=== PATIENT | male | born 1940 | race Caucasian/White ===

== ENCOUNTER 2024-05-13 11:25 | Day surgery (SDC) | payer MEDICARE, OTHER, SELFPAY ==
[2024-05-13] VITALS (18 sets, daily range): BP systolic 119–167; BP diastolic 71–107; BMI 27.6
--- NOTE | 2024-05-13 11:05 | W.PN.CARDCBS ---
Today's Communication / Plan
-
PCI LAD today
Impression / Plan
-
This is a summary, see scanned consultation
PCP: Vasyl Serna MD
CDY: Dick Reinoso MD
HPI: 83-year-old white male with history of SSS post PPM, atrial fibrillation on rivaroxaban, hypertension, hyperlipidemia and COPD presented to [facility] ER on 05/07 with dizziness, n/v.. Patient was sitting having a cigarette when he became lightheaded
with 3 episodes of vomiting. He was unable to walk back to his apartment in his assisted living facility and EMS was called. He underwent CT of the head which revealed chronic bilateral lacunar infarctions, right thalamus CVA and left thalamus
CVA, MRI with no acute findings. GI was consulted for n/v and CT identified pancreatic lesion with subsequent MRI lobulated multiloculated cystic lesion of the uncinate pancreas without postcontrast enhancement, they also found 5.4cm AAA. He will
need endoscopic u/s as outpt for further eval of pancreatic cyst. He was evaluated by cardiology and underwent Lexiscan showing intermediate risk myocardial perfusion study. He had cardiac catheterization on 05/12 with severely calcified mid segment
of the LAD. He is transferred today for high risk PCI of LAD. He denies ever having any chest pain.
IMP:
Syncope
CAD by cath 05/12 with severely calcified mid LAD stenosis
SSS PPM
Afib on chronic Xarelto
Hypertension
COPD
AAA 05/07/24: Bilobed fusiform aneurysmal dilatation of the infrarenal abdominal aorta measuring up to 5.4 cm.
evidence of infarct on head CT 04/06/24
Patent cerebral blood vessels
possible pancreatic neoplasm
PVD with occlusion of Left SFA
CAD with evidence of 2 vessel ischemia on stress testing 05/10/24
Plan:
PCI LAD today
DAPT ASA/Plavix, 300mg load 05/12, will give 75mg now
Cardiac rehab c/s
MRI re-evaluation of pancreas in 6 months
Return to [facility] after PCI for continued medical therapy
DATA:
05/12/24 [facility]:
1: Severe, calcified, high-grade LAD stenosis, to be treated at a hospital with CT surgery backup.
2: Saccular, infrarenal AAA noted.
05/08/24 ECHO:
1. Estimated left ventricular ejection fraction is normal with an ejection fraction of 60.2 % by Greene's method.
2. Mild concentric left ventricular hypertrophy.
3. Mild mitral annular calcification with trace mitral regurgitation
4. Aortic valve is tricuspid and sclerotic. No aortic regurgitaion present.
5. Right ventricular cavity size is normal with normal systolic function. (TAPSE 2.3 cm).
6. Mild tricuspid regurgitation is seen. Right atrial pressure of (3 mmHg), the estimated right ventricular systolic pressure is normal at (27.9 mmHg).
7. Study done in Normal sinus rhythm.
Progress Note - C Unix Developer
Subjective
Date of Service: May 13, 2024
denies cp, sob
WBC 8.8 10^3/uL (4.5-11.0) 05/12/24 03:38
RBC 4.41 10^6/uL (4.20-5.40) 05/12/24 03:38
Hgb 13.5 gm/dL (13.5-16.5) 05/12/24 03:38
Hct 41.4 % (40.0-48.0) 05/12/24 03:38
MCV 94 fl (82-98) 05/12/24 03:38
RDW 14.4 % (11.0-15.0) 05/12/24 03:38
Plt Count 202 10^3/uL (150-400) 05/12/24 03:38
Neut % (Auto) 57 % (40-78) 05/12/24 03:38
Lymph % (Auto) 24 % (21-49) 05/12/24 03:38
[place] % (Auto) 11 % (0-10) H 05/12/24 03:38
Eos % (Auto) 6 % (0-4) H 05/12/24 03:38
Baso % (Auto) 1 % (0-1) 05/12/24 03:38
Neut # (Auto) 5.0 10^3/uL (2.2-8.0) 05/12/24 03:38
Lymph # (Auto) 2.1 10^3/uL (1.0-4.0) 05/12/24 03:38
[place] # (Auto) 1.0 10^3/uL (0.0-1.0) 05/12/24 03:38
Eos # (Auto) 0.6 10^3/uL (0.0-0.4) H 05/12/24 03:38
Baso # (Auto) 0.1 10^3/uL (0.0-0.1) 05/12/24 03:38
Neutrophils % (Manual) 68 % (40-78) 05/07/24 14:26
Band Neuts % (Manual) 5 % (0-12) 05/07/24 14:26
Lymphocytes % (Manual) 12 % (27-40) L 05/07/24 14:26
Monocytes % (Manual) 10 % (0-10) 05/07/24 14:26
Eosinophils % (Manual) 5 % (0-4) H 05/07/24 14:26
Basophils % (Manual) 0 % (0-1) 05/07/24 14:26
WBC Morphology Comment Norm (NORM) 05/07/24 14:26
RBC Morph Comment Norm (NORM) 05/07/24 14:26
Sodium 142 mmol/L (136-145) 05/12/24 03:38
Potassium 4.0 mmol/L (3.5-5.1) 05/12/24 03:38
Chloride 108 mmol/L (98-107) H 05/12/24 03:38
Carbon Dioxide 24.6 mmol/L (22.0-29.0) 05/12/24 03:38
Anion Gap 9 (7-16) 05/12/24 03:38
BUN 21 mg/dL (8-23) 05/12/24 03:38
Creatinine 1.01 mg/dL (0.70-1.20) 05/12/24 03:38
GFR Calculation 75 (Over 90) L 05/12/24 03:38
BUN/Creatinine Ratio 20.9 (7.0-25.0) 05/12/24 03:38
POC Glucometer 109 mg/dL (70 - 110) 05/08/24 07:08
Fasting Glucose 104 mg/dL (70-110) 05/12/24 03:38
Hemoglobin A1c 6.1 % (4.0-5.9) H 05/07/24 14:26
Calcium 8.6 mg/dL (8.8-10.2) L 05/12/24 03:38
Total Bilirubin 0.4 mg/dL (0.1-1.2) 05/12/24 03:38
AST 20 U/L (0-40) 05/12/24 03:38
ALT 13 U/L (0-41) 05/12/24 03:38
Alkaline Phosphatase 68 U/L (35-160) 05/12/24 03:38
Troponin T 5th Gen ng/L 13 ng/L (0-22) 05/10/24 04:31
Total Protein 6.4 g/dL (6.5-8.3) L 05/12/24 03:38
Albumin 3.6 g/dL (3.5-5.2) 05/12/24 03:38
Globulin 2.7 g/dL (2.3-3.5) 05/12/24 03:38
Albumin/Globulin Ratio 1.3 (1.1-1.7) 05/12/24 03:38
Triglycerides 123 mg/dL (60-150) 05/08/24 06:49
Cholesterol 130 mg/dL (150-200) L 05/08/24 06:49
LDL Cholesterol 73 mg/dL (<70) H 05/08/24 06:49
HDL Cholesterol 36 mg/dL (40-60) L 05/08/24 06:49
Cholesterol/HDL Ratio 3.61 (2.00-5.00) 05/08/24 06:49
Lipase 19 U/L (13-60) 05/07/24 14:26
Procalcitonin 0.02 ng/mL (0.00-0.15) 05/07/24 14:26
TSH 3rd Generation 1.460 mcIU/mL (0.270-4.20) 05/07/24 14:26
Urine Color Yellow (YELLOW) 05/07/24 15:50
Urine Clarity Clear (CLEAR) 05/07/24 15:50
Urine pH 6.5 (5.0-7.0) 05/07/24 15:50
Ur Specific [place] 1.020 (1.006-1.029) 05/07/24 15:50
Urine Protein Negative (NEG-TRACE) 05/07/24 15:50
Urine Glucose (UA) Negative (NEG) 05/07/24 15:50
Urine Ketones Negative (NEG) 05/07/24 15:50
Urine Blood Negative (NEG) 05/07/24 15:50
Urine Nitrate Negative (NEG) 05/07/24 15:50
Urine Bilirubin Negative (NEG) 05/07/24 15:50
Urine Urobilinogen Normal (0.2-1.0) 05/07/24 15:50
Ur Leukocyte Esterase Negative (NEG) 05/07/24 15:50
Urine RBC 1-5 /hpf (1-5) 05/07/24 15:50
Urine Microscopic WBC 1-5 /hpf (0-5) 05/07/24 15:50
Ur Epithelial Cells 1-5 /hpf (0) 05/07/24 15:50
Physical Exam
Physical Exam
NAD, AOx3 [place]
S1, S2, RRR
CTAB, no wheeze, diminished t/o
SNTND bsx4
[2024-05-13] MEDS: NSS 269 ML IV (11:30)
[2024-05-13] MEDS: PLAVIX 75 MG PO (11:58)
[2024-05-13 13:09] LABS: ACT-LR - POC 237 Seconds (116-155)
[2024-05-13 13:54] LABS: ACT-LR - POC 292 Seconds (116-155)
[2024-05-13 14:25] LABS: ACT-LR - POC 216 Seconds (116-155)
--- NOTE | 2024-05-13 15:02 | PTCARENOTE ---
received pt from cardiovascular lab director. Right radial site CDI. Pt educated on expected OOB time and right wrist restrictions. AOx3, no complaints of pain or discomfort. Call espinal within reach.
--- NOTE | 2024-05-13 15:07 | ITS.CL.ANGIO ---
Hand Coper - Angioplasty
Angioplasty
Procedure Report:
LEFT HEART CATHETERIZATION
Date of Procedure: [05/13/2024]
Procedures performed:
1: Coronary angiography
2: PCI with JESUS to LAD
3: Intravascular coronary lithotripsy.
Primary Care Physician: Unknown
Primary Fingernail Former: Dick Reinoso
INDICATION: Unstable angina
ACCESS: The patient was prepped and draped in usual sterile fashion. A 6 [place] sheath was placed in the right right radial artery using the Seldinger over the wire technique. Total of 10,000 units of heparin was administered for anticoagulation.
Percutaneous Coronary Intervention (PCI): This was a planned coronary intervention to the subtotally occluded LAD. EBU 3.5 cm guiding catheter was used to cannulate left main coronary artery. A 6 [place] Guideliner catheter was used for
extra-support.
The lesion was crossed with a run-through wire. Initially, a 1.25 x 12 mm balloon was used to cross the proximal and distal LAD lesions. Several inflations were performed, with the highest inflation to 14 ki. We then switched to a 2.0 x 20 mm
compliant balloon. Several inflations were performed the mid LAD, noting that there was complete expansion of the 2.0 x 20 compliant balloon. We then scaled up to 2.5 x 15 mm noncompliant balloon. Of note, longer 2.5 noncompliant balloons were
not available in the department. Several inflations of 2.5 x 15 mm NC balloons were performed, and there appeared to be full expansion of the mid LAD lesion. We then deployed a 3.0 x 38 mm Oneal drug-eluting stent to the mid LAD. We went up to 14
ki and held for 30 seconds. Unfortunately, there is a focal, 5 mm napkin ring lesion that remained underexpanded. Of note, this was not immediately apparent when the noncompliant balloons were going up prior to stent deployment.
I then took a 3.0 x 12 mm noncompliant balloon and attempted to high-pressure inflation of the nondilated area. I went to size 24 ki, however, the lesion failed to yield. We then decided to proceed with intravascular coronary lithotripsy. A 3.0
x 12 shockwave lithotripsy balloon was then delivered to the lesion with the assistance of the guide liner. Total of 40 pulses were delivered. After delivering of the last 10 pulses, the lesion appeared to be fully expanded. We then took a 3.25 x
20 mm noncompliant balloon and postdilated the entire length of the 38 mm stent. There was complete expansion of the noncompliant balloon. Follow-up angiography revealed a possible irregularity proximal to the stent. No apparent focal dissection
was seen, so we decided to cover it with a short, 3.5 x 12 mm Oneal drug-eluting stent. The stent was then successfully deployed and postdilated with 3.5 x 14 mm noncompliant balloon to 12 ki. Post balloon inflation, there is no dissection or
perforation with SONNY-3 flow in the LAD. At this point, the patient was considered to be revascularized and the procedure was concluded.
FINAL RESULT: Successful intravascular coronary lithotripsy and PCI with JESUS x 2 to the left anterior descending coronary artery.
Fluoroscopy Time (min): 26.3 minutes
Radiation Dose (mGy): 2071.90 mGy
DAP (Gy.cm2): 81.1428
Closure device: None. A TR band was applied for hemostasis at the right wrist.
Complications: None.
ASSESSMENT:
1: Successful PCI with JESUS x 2 followed by intravascular lithotripsy of left anterior descending coronary artery.
CONCLUSIONS and RECOMMENDATIONS:
1: Due to the complexity of the procedure, will observe overnight and [facility] with a plan to transfer back to [facility] at 10 AM the morning of 05/14/2024.
2: Continue aspirin 81 mg, Plavix 75 mg daily. The patient has a history of paroxysmal atrial fibrillation and has been maintained on Xarelto. Patient will continue aspirin 81 mg daily Plavix 75 mg daily and Xarelto 20 mg daily for 1 week, and
then will continue Plavix 75 mg daily and Xarelto 20 mg daily for at least 6 months.
I was present with the patient for the duration of the moderate sedation and supervised staff who monitored the patient for the entire procedure. Details of sedation are entered by the nurse administering the sedation and details of the patient's
monitoring status are entered by a sign monitor role staff member into the [facility] laboratory electronic record system. Please see the nursing flow sheets for documentation of the name of the independent trained observer, and intra-service start and
end times.
I administered moderate sedation throughout this [74] minute procedure. An independent trained observer administered medications at my direction, and monitored, along with the monitor role staff member, the patient's level of consciousness and
physiological status throughout
[2024-05-13] MEDS: DUONEB 3 ML INH ×2 (15:36→19:24)
--- NOTE | 2024-05-13 16:36 | CM ---
Chart reviewed. Patient was a transfer from [facility] for LAD stent. Patient is independent of ADLS, lives [place] at [facility], 2nd floor, total of 8 [place], 0 DME. Plan is to return back to [facility] 05/14/2024. Bed will need to be confirmed at [facility], as
well as transportation back. CM to follow
[2024-05-13] MEDS: LIPITOR 40 MG PO (18:28)
[2024-05-13] MEDS: ADVAIR HFA 115/21 MCG INHALER 2 PUFF INH (19:24)
[2024-05-13] MEDS: LOVENOX 40 MG SC (22:31)
--- NOTE | 2024-05-14 00:24 | PTCARENOTE ---
TR band removed at approx 20:20 w/out difficulty. Dry dressing applied. Site ecchymotic and soft upon palpation. No hematoma noted at this time. Pt educated on activity restrictions. Pt AAOx3 and [place] bilaterally w/ hearing aids. Tele rhythm shows SR
and occasional Apaced. Pt denies any pain or SOB. Aware of POC, call espinal within reach.
[2024-05-14 03:12] VITALS: BP 139/98
[2024-05-14 03:17] VITALS: BMI 27.4
[2024-05-14 03:46] LABS: Hematocrit 38.3 % (39.0-52.0); Hemoglobin 13.5 g/dL (13.0-18.0); Mean Corp Hgb Conc. 35.2 g/dL (33.0-37.0); Mean Corpuscular Hgb 31.1 pg (27.0-31.0); Mean Corpuscular Volume 88.2 fL (80.0-94.0); Mean Platelet Volume 9.4 fL (7.4-10.4); Platelet Count 201 10^3/uL (130-400); Red Blood Cell Count 4.34 10^6/uL (4.70-6.10); Red Cell Dist. Width 14.3 % (11.5-14.5); White Blood Cell Count 11.1 10^3/uL (4.8-10.8)
[2024-05-14 04:17] LABS: Blood Urea Nitrogen 18 mg/dl (9-20); Calcium 9.1 mg/dl (8.4-10.2); Carbon Dioxide 23 mmol/L (22-30); Chloride 107 mmol/L (98-107); Estimated Creatinine Clearance 69 ml/min; Glucose 97 mg/dl (70-99); Potassium 3.8 mmol/L (3.5-5.1); Sodium 140 mmol/L (135-145); eGFR > 60.00
[2024-05-14 07:42] LABS: ACT-LR - POC > 397 Seconds (116-155)
[2024-05-14 07:42] LABS: ACT-LR - POC > 397 Seconds (116-155)
[2024-05-14 07:55] VITALS: BP 165/100
[2024-05-14] MEDS: ADVAIR HFA 115/21 MCG INHALER 2 PUFF INH (07:55)
[2024-05-14] MEDS: DUONEB 3 ML INH ×3 (07:55→15:09)
[2024-05-14 07:58] VITALS: BP 128/92
[2024-05-14] MEDS: LOW STRENGTH ASPIRIN 81 MG PO (08:20)
[2024-05-14] MEDS: TOPROL XL 25 MG PO (08:20)
[2024-05-14] MEDS: PACERONE 100 MG PO (08:21)
[2024-05-14] MEDS: PLAVIX 75 MG PO (08:21)
--- NOTE | 2024-05-14 09:45 | W.PN.CARDCBS ---
Addendum entered and electronically signed by Jerald Dwyer DO 05/14/24 13:45:
Attestation: I have seen and examined the patient. I can confirm Ms. Silva's findings and I agree with her assessment and plan as documented.
83-year-old gentleman transferred for high risk PCI with intracoronary lithotripsy.
The patient underwent a successful procedure yesterday.
He offers no subjective complaints morning.
Exam is benign.
Labs are stable.
The patient is hemodynamically stable and appropriate for transfer back to [facility].
Maintain dual antiplatelet therapy for the foreseeable future.
Further medication titration per primary cardiology.
Original Note:
Today's Communication / Plan
-
post lithotripsy and PCI calcified LAD
plan to transfer back to [facility] this am when bed available
will be on triple therapy for 1 week (ASA 81, Plavix 75, XArelto 15mg) then stop Aspirin
Impression / Plan
-
This is a summary, see scanned consultation
PCP: Vasyl Serna MD
CDY: Dick Reinoso MD
HPI: 83-year-old white male with history of SSS post PPM, atrial fibrillation on rivaroxaban, hypertension, hyperlipidemia and COPD presented to [facility] ER on 05/07 with dizziness, n/v.. Patient was sitting having a cigarette when he became lightheaded
with 3 episodes of vomiting. He was unable to walk back to his apartment in his assisted living facility and EMS was called. He underwent CT of the head which revealed chronic bilateral lacunar infarctions, right thalamus CVA and left thalamus
CVA, MRI with no acute findings. GI was consulted for n/v and CT identified pancreatic lesion with subsequent MRI lobulated multiloculated cystic lesion of the uncinate pancreas without postcontrast enhancement, they also found 5.4cm AAA. He will
need endoscopic u/s as outpt for further eval of pancreatic cyst. He was evaluated by cardiology and underwent Lexiscan showing intermediate risk myocardial perfusion study. He had cardiac catheterization on 05/12 with severely calcified mid segment
of the LAD. He is transferred today for high risk PCI of LAD. He denies ever having any chest pain.
IMP:
Syncope
CAD by cath 05/12 with severely calcified mid LAD stenosis
SSS PPM
Afib on chronic Xarelto
Hypertension
COPD
AAA 05/07/24: Bilobed fusiform aneurysmal dilatation of the infrarenal abdominal aorta measuring up to 5.4 cm.
evidence of infarct on head CT 04/06/24
Patent cerebral blood vessels
possible pancreatic neoplasm
PVD with occlusion of Left SFA
CAD with evidence of 2 vessel ischemia on stress testing 05/10/24
Plan:
Post complex Lithotripsy and PCI calcified LAD x 2 JESUS 05/13/24
no cp, rad site stable, tele apaced, no sig ectopy
DAPT ASA/Plavix
New start to metoprolol xl 25mg daily
Afib - continue amiodarone, Will hold Xalreto for now, when it is resumed will need to decrease dose to 15mg while on Plavix 75mg daily
Plan on triple therapy for 1 week ASA/Plavix, Xarelto 15mg, then Plavix/Xarelto
BP stable, will defer to primary cardiology team to resume bp meds as able
Cardiac rehab c/s
MRI re-evaluation of pancreas in 6 months
Return to [facility] this am when bed available with Dr. Moon
DATA:
05/13/24 [facility]:
1: Successful PCI with JESUS x 2 followed by intravascular lithotripsy of left anterior descending coronary artery.
05/12/24 [facility]:
1: Severe, calcified, high-grade LAD stenosis, to be treated at a hospital with CT surgery backup.
2: Saccular, infrarenal AAA noted.
05/08/24 ECHO:
1. Estimated left ventricular ejection fraction is normal with an ejection fraction of 60.2 % by Greene's method.
2. Mild concentric left ventricular hypertrophy.
3. Mild mitral annular calcification with trace mitral regurgitation
4. Aortic valve is tricuspid and sclerotic. No aortic regurgitaion present.
5. Right ventricular cavity size is normal with normal systolic function. (TAPSE 2.3 cm).
6. Mild tricuspid regurgitation is seen. Right atrial pressure of (3 mmHg), the estimated right ventricular systolic pressure is normal at (27.9 mmHg).
7. Study done in Normal sinus rhythm.
Progress Note - Real Estate Services Administrator
Subjective
Date of Service: May 14, 2024
denies cp, sob
Objective
Labs:
05/14/24 03:22
05/14/24 03:22
Labs
Hgb 13.5 g/dL (13.0-18.0) 05/14/24 03:22
Hct 38.3 % (39.0-52.0) L 05/14/24 03:22
Plt Count 201 10^3/uL (130-400) 05/14/24 03:22
Sodium 140 mmol/L (135-145) 05/14/24 03:22
Potassium 3.8 mmol/L (3.5-5.1) 05/14/24 03:22
BUN 18 mg/dl (9-20) 05/14/24 03:22
Creatinine 0.9 mg/dL (0.7-1.3) 05/14/24 03:22
Glucose 97 mg/dl (70-99) 05/14/24 03:22
Vital Signs and I&O:
Vital Signs
Temp Pulse Resp BP Pulse Ox
98.0 F 77 16 128/92 93
05/14/24 07:59 05/14/24 08:00 05/14/24 07:59 05/14/24 07:58 05/14/24 08:23
Vital Signs
Temp Pulse Resp BP Pulse Ox
98.0 F 77 16 128/92 93
05/14/24 07:59 05/14/24 08:00 05/14/24 07:59 05/14/24 07:58 05/14/24 08:23
Intake & Output
05/12/24 05/13/24 05/14/24 05/15/24
06:59 06:59 06:59 06:59
Intake Total 508 / 508 180 / 180
Balance 508 / 508 180 / 180
Physical Exam
Physical Exam
NAD, AOx3
S1, S2, RRR
CTAB, non labored, no wheeze
SNTND bsx4
R rad site c/d/i mod ecchymosis, good pulse
--- NOTE | 2024-05-14 11:23 | CM ---
Chart reviewed. Patient was a transfer from [facility], independent of ADLS, lives in [facility], 2nd floor, total of 8 [place], 0 DME. Waiting for a bed at [facility] to transfer the patient back. CM to follow
[2024-05-14 13:13] VITALS: BP 120/74
--- NOTE | 2024-05-14 13:47 | W.DS.TRANS ---
DC Summary - Stonemason Supervisor
-
Discharge Instructions:
Sleep Apnea Risk Low
Discharge Diagnosis/Procedures Angioplasty with stent to LAD and shockwave
lithotripsy
Diet Low Cholesterol
Driving Restrictions No driving for 24 hours
Other Services Cardiac Rehab
Instructions:
Stand-Alone Forms: DC Instructions- Cath/EP Lab
Changes to Home Medications: Yes
Discharge Medications:
DC Medications w/original date entered in [facility]
amiodarone 200 mg tablet 100 mg PO DAILY 05/13/24
fluticasone 250 mcg-salmeterol 50 mcg/dose blistr powdr for inhalation (Advair Diskus) 1 inh inhalation BID 05/13/24
lisinopril 20 mg-hydrochlorothiazide 12.5 mg tablet 1 tab PO DAILY 05/13/24
vit C 250 mg-vit E 90 mg-zinc 40 mg-copper 1 [id number] capsule (PreserVision AREDS-2) 1 tab PO BID 05/13/24
aspirin 81 mg chewable tablet 81 mg PO DAILY #1 tab 05/14/24
atorvastatin 40 mg tablet 40 mg PO QPM #1 tab 05/14/24
clopidogrel 75 mg tablet 75 mg PO DAILY #1 tab 05/14/24
metoprolol succinate 25 mg tablet,extended release 24 hr 25 mg PO DAILY #1 tab 05/14/24
rivaroxaban 15 mg tablet (Xarelto) 15 mg PO QPM #1 tab 05/14/24
Home Medication Changes
new to plavix, toprol, atorvastatin, stopped pravastatin, decreased xarelto to 15mg
Pending Results: No
[2024-05-14 15:41] VITALS: BP 120/78
--- NOTE | 2024-05-14 16:13 | PTCARENOTE ---
Pt seen by Brittany Silva NP . Discharge instructions reviewed with pt regarding medications , activity guidelines, wound care, reporting cares and concerns and follow up appt's, fair understanding verbalized, pt is quite hard of hearing even with
hearing aides. Report called to Brittni at [facility] at 14:40. Pt left via ambulance stretcher with all his belongings / chargers/ hearing aides to [facility].
== END 2024-05-14 16:05 | disposition short-term general hospital (02) ==
LOC: CATH 11:25
PROVIDERS: Nurse Practitioner Adult Health; ATTENDING PHYSICIAN Internal Medicine Cardiovascular Disease
DX: I25.110 Atherosclerotic heart disease of native coronary artery with unstable angina pectoris (principal); I48.0 Paroxysmal atrial fibrillation; I49.5 Sick sinus syndrome; I10 Essential (primary) hypertension; J44.9 Chronic obstructive pulmonary disease, unspecified; Z86.73 Personal history of transient ischemic attack (TIA), and cerebral infarction without residual deficits; I71.40 Abdominal aortic aneurysm, without rupture, unspecified; Z95.0 Presence of cardiac pacemaker; Z79.82 Long term (current) use of aspirin; Z79.02 Long term (current) use of antithrombotics/antiplatelets; Z79.01 Long term (current) use of anticoagulants
CPT/HCPCS: C1769; C1725; C1894; C1761; 80048; 85027; 85347; 93005; 94640; C1874; C9600; Q9967